=== PATIENT | male | born 1960 | race American Indian/Alaskan Native ===

== ENCOUNTER 2020-10-04 15:01 | Inpatient (IN) | payer OTHER ==
[~2020-10-04 15:01] MED LIST: BUPIVACAINE/PF (0.25%) 2.5 MG/ML 30 ML VIAL INFILTRATI ONE; LIDOCAINE (1%) 10 MG/1 ML VIAL 20 ML MDV INFILTRATI ONE; SODIUM CHLORIDE 0.9% IRR 1,500 ML BOTTLE IR ONE
--- NOTE | 2020-10-04 15:04 | Event Note ---
ED Screening Note ED Screening Note: allergy to shell fish pmh obese hernia occ etoh severe abd pain- has hernia vomiting hiccups bm 3 d ago no rx diaphoretic/tachycardia This initial assessment/diagnostic orders/clinical plan/treatment(s) is/are subject to change based on patients health status, clinical progression and re- assessment by fellow clinical providers in the ED. Further treatment and workup at subsequent clinical providers discretion. Patient/guardian urged not to elope from the ED as their condition may be serious if not clinically assessed and managed. Initial orders include: ro inc hernia
[2020-10-04] MEDS ORDERED: ONDANSETRON 4 MG/2 ML INJ IV ONE ×2 (16:49→20:33)
[2020-10-04] MEDS ORDERED: MORPHINE 4 MG/1 ML INJ IV ONE ×3 (16:49→22:12)
[2020-10-04] MEDS ORDERED: SODIUM CHLORIDE 0.9% 1000 ML 1,000 ML IV ONE ×3 (16:49→22:32)
[2020-10-04 18:28] LABS: Basophils % (Auto) 0.3 % (0.0-1.8); Hematocrit 54.4 % (35.5-45.6); Hemoglobin 18.3 gm/dl (11.8-15.2); Lymphocytes # (Auto) 1.1 K/mm3 (1.2-5.4); Lymphocytes % (Auto) 11.5 % (13.4-35.0); Mean Corpuscular HGB Conc 34 % (32-34); Mean Corpuscular Volume 95 fl (84-94); Monocytes % (Auto) 11.3 % (0.0-7.3); Platelet Count 375 K/mm3 (140-440); Red Blood Count 5.71 M/mm3 (3.65-5.03)
[2020-10-04 18:37] LABS: INR 1.11 (0.87-1.13)
[2020-10-04 18:49] LABS: Albumin 4.7 g/dL (3.9-5); Bilirubin,Direct 0.5 mg/dL (0-0.2); Calcium 9.9 mg/dL (8.4-10.2)
--- NOTE | 2020-10-04 20:40 | Emergency Department Report ---
ED General Adult HPI - General Chief complaint: Abdominal Pain Stated complaint: ABD PAIN Time Seen by Provider: 10/04/20 15:02 Source: patient Mode of arrival: Ambulatory Limitations: No Limitations - History of Present Illness Initial comments: Patient presents to the emergency department the chief complaint of abdominal pain has been present for the last 3 days. Patient states that his hernia has been acting up over the last 3 days it has become worse each and every day. Patient states he is usually able to push the hernia back down but he has not been able to over the last 3 days. Patient also complains of having some vomiting since the abdominal pain began 3 days ago. Patient denies chest pain, shortness breath, headache. -: Sudden, days(s) (3) Location: abdomen Radiation: non-radiation Severity scale (0 -10): 6 Quality: sharp Consistency: constant Improves with: none Worsens with: none Associated Symptoms: denies other symptoms Treatments Prior to Arrival: none - Related Data Allergies Allergy/AdvReac Type Severity Reaction Status Date / Time shellfish derived Allergy Anaphylaxis Verified 10/04/20 15:04 ED Review of Systems ROS: Stated complaint: ABD PAIN Other details as noted in HPI Constitutional: denies: chills, fever Eyes: denies: eye pain, eye discharge, vision change ENT: denies: ear pain, throat pain Respiratory: denies: cough, shortness of breath, wheezing Cardiovascular: denies: chest pain, palpitations Endocrine: no symptoms reported Gastrointestinal: abdominal pain. denies: nausea, diarrhea Genitourinary: denies: urgency, dysuria Musculoskeletal: denies: back pain, joint swelling, arthralgia Skin: denies: rash, lesions Neurological: denies: headache, weakness, paresthesias Psychiatric: denies: anxiety, depression Hematological/Lymphatic: denies: easy bleeding, easy bruising ED Past Medical Hx - Past Medical History Previous Medical History?: No - Surgical History Past Surgical History?: Yes Hx Appendectomy: Yes ED Physical Exam - General Limitations: No Limitations General appearance: alert, in no apparent distress - Head Head exam: Present: atraumatic, normocephalic - Eye Eye exam: Present: normal appearance, PERRL, EOMI - ENT ENT exam: Present: mucous membranes moist - Neck Neck exam: Present: normal inspection - Respiratory Respiratory exam: Present: normal lung sounds bilaterally. Absent: respiratory distress - Cardiovascular Cardiovascular Exam: Present: regular rate, normal rhythm. Absent: systolic murmur, diastolic murmur, rubs, gallop - GI/Abdominal GI/Abdominal exam: Present: soft, tenderness (The periumbilical hernia is tender to palpation and not reducible on exam.), normal bowel sounds. Absent: distended - Rectal Rectal exam: Present: deferred - Extremities Exam Extremities exam: Present: normal inspection - Back Exam Back exam: Present: normal inspection - Neurological Exam Neurological exam: Present: alert, oriented X3 - Psychiatric Psychiatric exam: Present: normal affect, normal mood - Skin Skin exam: Present: warm, dry, intact, normal color. Absent: rash ED Course Vital Signs 10/04/20 10/04/20 18:44 20:36 Pulse Rate 130 H 110 H Respiratory 20 17 Rate Blood Pressure 137/89 [Right] O2 Sat by Pulse 94 99 Oximetry ED Medical Decision Making - Lab Data Result diagrams: 10/04/20 16:39 10/04/20 16:39 Lab Results 10/04/20 10/04/20 10/04/20 Range/Units 16:39 16:39 16:39 WBC 9.2 (4.5-11.0) K/mm3 RBC 5.71 H (3.65-5.03) M/mm3 Hgb 18.3 H (11.8-15.2) gm/dl Hct 54.4 H (35.5-45.6) % MCV 95 H (84-94) fl MCH 32 (28-32) pg MCHC 34 (32-34) % RDW 14.0 (13.2-15.2) % Plt Count 375 (140-440) K/mm3 Lymph % (Auto) 11.5 L (13.4-35.0) % [place] % (Auto) 11.3 H (0.0-7.3) % Eos % (Auto) 0.0 (0.0-4.3) % Baso % (Auto) 0.3 (0.0-1.8) % Lymph # (Auto) 1.1 L (1.2-5.4) K/mm3 [place] # (Auto) 1.0 H (0.0-0.8) K/mm3 Eos # (Auto) 0.0 (0.0-0.4) K/mm3 Baso # (Auto) 0.0 (0.0-0.1) K/mm3 Seg Neutrophils % 76.9 H (40.0-70.0) % Seg Neutrophils # 7.1 (1.8-7.7) K/mm3 PT 14.2 (12.2-14.9) Sec. INR 1.11 (0.87-1.13) Sodium 132 L (137-145) mmol/L Potassium 5.2 H (3.6-5.0) mmol/L Chloride 91.7 L (98-107) mmol/L Carbon Dioxide 22 (22-30) mmol/L Anion Gap 24 mmol/L BUN 46 H (9-20) mg/dL Creatinine 1.6 H (0.8-1.3) mg/dL Estimated GFR 53 ml/min BUN/Creatinine Ratio 29 % Glucose 258 H (75-100) mg/dL Lactic Acid (0.7-2.0) mmol/L Calcium 9.9 (8.4-10.2) mg/dL Total Bilirubin 1.70 H (0.1-1.2) mg/dL Direct Bilirubin 0.5 H (0-0.2) mg/dL Indirect Bilirubin 1.2 mg/dL AST 20 (5-40) units/L ALT 22 (7-56) units/L Alkaline Phosphatase 59 (35-129) units/L Total Creatine Kinase (55-170) units/L Troponin T (0.00-0.029) ng/mL Total Protein 8.6 H (6.3-8.2) g/dL Albumin 4.7 (3.9-5) g/dL Albumin/Globulin Ratio 1.2 % Lipase 20 (13-60) units/L 10/04/20 10/04/20 Range/Units 16:39 16:39 WBC (4.5-11.0) K/mm3 RBC (3.65-5.03) M/mm3 Hgb (11.8-15.2) gm/dl Hct (35.5-45.6) % MCV (84-94) fl MCH (28-32) pg MCHC (32-34) % RDW (13.2-15.2) % Plt Count (140-440) K/mm3 Lymph % (Auto) (13.4-35.0) % [place] % (Auto) (0.0-7.3) % Eos % (Auto) (0.0-4.3) % Baso % (Auto) (0.0-1.8) % Lymph # (Auto) (1.2-5.4) K/mm3 [place] # (Auto) (0.0-0.8) K/mm3 Eos # (Auto) (0.0-0.4) K/mm3 Baso # (Auto) (0.0-0.1) K/mm3 Seg Neutrophils % (40.0-70.0) % Seg Neutrophils # (1.8-7.7) K/mm3 PT (12.2-14.9) Sec. INR (0.87-1.13) Sodium (137-145) mmol/L Potassium (3.6-5.0) mmol/L Chloride (98-107) mmol/L Carbon Dioxide (22-30) mmol/L Anion Gap mmol/L BUN (9-20) mg/dL Creatinine (0.8-1.3) mg/dL Estimated GFR ml/min BUN/Creatinine Ratio % Glucose (75-100) mg/dL Lactic Acid 1.90 (0.7-2.0) mmol/L Calcium (8.4-10.2) mg/dL Total Bilirubin (0.1-1.2) mg/dL Direct Bilirubin (0-0.2) mg/dL Indirect Bilirubin mg/dL AST (5-40) units/L ALT (7-56) units/L Alkaline Phosphatase (35-129) units/L Total Creatine Kinase 273 H (55-170) units/L Troponin T 0.011 (0.00-0.029) ng/mL Total Protein (6.3-8.2) g/dL Albumin (3.9-5) g/dL Albumin/Globulin Ratio % Lipase (13-60) units/L - Radiology Data Radiology results: report reviewed - Medical Decision Making Spoke with Dr. Che and patient will be evaluated by her with possible or intervention Discussed results with patient Critical care attestation.: If time is entered above; I have spent that time in minutes in the direct care of this critically ill patient, excluding procedure time. ED Disposition Clinical Impression: Incarcerated umbilical hernia Disposition: OP ADMIT IP TO THIS HOSP Is pt being admited?: Yes Does the pt Need Aspirin: No Condition: Fair Referrals: PRIMARY CARE, [Primary Care Provider] - 3-5 Days
--- NOTE | 2020-10-04 21:31 | Cat Scan Report ---
CT ABDOMEN AND PELVIS WITH CONTRAST INDICATION / CLINICAL INFORMATION: incarcerated hernia. TECHNIQUE: Axial CT images were obtained through the abdomen and pelvis after 100 cc Omni [address] scans at this location are performed using CT dose reduction for ALARA by means of automated expos ure control. COMPARISON: None available. FINDINGS: LOWER CHEST: Partially visualized 5 mm nodule which is in close proximity to the left major fissure i n the left lower lobe. HEPATOBILIARY: Mild diffuse hypoattenuation of the liver without focal lesion. No significant biliary abnormality. PANCREAS/SPLEEN/ADRENALS: No significant abnormality. GENITOURINARY: Subcentimeter left renal hypodensity at the superior pole possibly representing a cyst . No obstructive uropathy or solid renal mass. Ureters and bladder demonstrate no significant abnorma lity. GASTROINTESTINAL/MESENTERY: Multiple dilated loops of small bowel with air-fluid levels and a medium sized anterior fat and bowel containing abdominal wall hernia at the midabdomen level of the pelvic b rim. The bowel within the hernia is decompressed. The afferent bowel appears dilated and the efferent bowel is also decompressed. No free air or significant free fluid. No mesenteric or portal venous ga s. No pneumatosis intestinalis. RETROPERITONEUM: No significant adenopathy. REPRODUCTIVE ORGANS: No significant abnormality. VASCULAR: No significant abnormality. BODY WALL: Medium sized anterior abdominal wall hernia containing decompressed bowel, as described ab ove. SKELETAL SYSTEM: Mild anterior compression deformity of L2, age indeterminate. No aggressive osseous lesion is apparent. IMPRESSION: 1. Medium sized anterior abdominal wall hernia containing decompressed bowel with high-grade appearin g obstruction of the bowel proximal to the hernia. No evidence of perforation or mesenteric ischemia at this time. Recommend surgical consultation and further evaluation/follow-up as warranted. 2. 5 mm left lower lobe nodule. In patients with low risk for pulmonary neoplasm no routine follow-up is recommended. In patients with high risk for pulmonary neoplasm consider dedicated CT chest in 12 months. 3. Subcentimeter left renal hypodensity, possible cyst. 4. Findings suggestive of hepatic steatosis. 5. Mild anterior compression deformity of L2, age indeterminate. Recommend clinical correlation and c omparison with prior imaging if available. Signer Name: Brayan Rosen MD Signed: 10/04/2020 9:26 PM Workstation Name: [id number]
[2020-10-04 22:43] LABS: Bacteria,Urine 1+ /HPF (Negative); Bilirubin,Urine NEG (Negative); Blood,Urine NEG (Negative); Color,Urine Amber (Yellow); Mucus,Urine FEW /HPF
[2020-10-04] MEDS ORDERED: SODIUM CHLORIDE 0.9% 1000 ML 1,000 ML IV SCH ×2 (22:45→23:00)
[2020-10-04] MEDS ORDERED: ACETAMINOPHEN 325 MG TAB PO PRN (22:48)
[2020-10-04] MEDS ORDERED: ONDANSETRON 4 MG/2 ML INJ IV PRN (22:48)
--- NOTE | 2020-10-04 22:56 | History and Physical Report ---
History of Present Illness Date of examination: 10/04/20 Date of admission: 10/04/2020 Chief complaint: Abdominal Pain History of present illness: 60-year-old -Filipino male presenting to the emergency room today complaining of abdominal pain which has been ongoing for the past 3 days. Patient has had an umbilical hernia over several years but has not had any major problems with it. However over the past 3 to 4 days he has been having pain in his umbilical region. He has been having nausea and vomiting and has been constipated over the past 4 days. He denies any coffee-ground emesis, no diarrhea, no chest pain or shortness of breath, no fever or chills, no headache or dizziness. Denies any dysuria or hematuria. Work-up in the emergency room today including CT scan of the abdomen and pelvis reveals incarcerated umbilical hernia. Labs were significant for acute kidney injury. Dr. Chinedu carson general surgeon was consulted by the ER physician. Patient will be promptly evaluated. Past History Past Medical History: other (Kyleena) Past Surgical History: appendectomy Social history: alcohol abuse (Occasional alcohol) Family history: diabetes ( diabetes in mother), hypertension (Hypertension in mother), other (Mother of multiple myeloma about 3 years ago) Medications and Allergies Allergies Allergy/AdvReac Type Severity Reaction Status Date / Time shellfish derived Allergy Anaphylaxis Verified 10/04/20 15:04 Active Meds: Active Medications Acetaminophen (Acetaminophen 325 Mg Tab) 650 mg PO Q4H PRN PRN Reason: Pain MILD(1-3)/Fever >100.5/ACOSTA Cefazolin Sodium (Cefazolin/Sterile Water 2 Gm/20 Ml Syringe) 2 gm IV PREOP NR Sodium Chloride (Nacl 0.9% 1000 Ml) 1,000 mls @ 999 mls/hr IV BOLUS ONE Stop: 10/04/20 23:22 Sodium Chloride (Nacl 0.9% 1000 Ml) 1,000 mls @ 999 mls/hr IV BOLUS ONE Stop: 10/04/20 23:32 Last Admin: 10/04/20 22:33 Dose: 999 mls/hr Documented by: Sodium Chloride (Nacl 0.9% 1000 Ml) 1,000 mls @ 150 mls/hr IV DIRECT LEIGH ANN Sodium Chloride (Nacl 0.9% 1000 Ml) 1,000 mls @ 125 mls/hr IV DIRECT LEIGH ANN Morphine Sulfate (Morphine 2 Mg/1 Ml Inj) 2 mg IV Q4H PRN PRN Reason: Pain, Moderate (4-6) Ondansetron HCl (Ondansetron 4 Mg/2 Ml Inj) 4 mg IV Q8H PRN PRN Reason: Nausea And Vomiting Sodium Chloride (Sodium Chloride 0.9% 10 Ml Flush Syringe) 10 ml IV BID LEIGH ANN Sodium Chloride (Sodium Chloride 0.9% 10 Ml Flush Syringe) 10 ml IV PRN PRN PRN Reason: LINE FLUSH Review of Systems Constitutional: no fever, no chills Ears, nose, mouth and throat: no nasal congestion, no sore throat Cardiovascular: no chest pain, no palpitations Respiratory: no cough, no shortness of breath Gastrointestinal: abdominal pain, nausea, vomiting, constipation, no diarrhea, no coffee ground emesis Genitourinary Male: no dysuria, no hematuria, no flank pain Musculoskeletal: no neck pain, no low back pain Integumentary: no rash, no pruritis Neurological: no headaches, no confusion Psychiatric: no anxiety, no depression Exam - Constitutional Vitals: Temp Pulse Resp BP Pulse Ox 110 H 17 137/89 99 10/04/20 20:36 10/04/20 20:36 10/04/20 18:44 10/04/20 20:36 General appearance: Present: no acute distress, well-nourished, obese - EENT Eyes: Present: PERRL, EOM intact. Absent: scleral icterus ENT: hearing intact, clear oral mucosa, dentition normal - Neck Neck: Present: supple, normal ROM - Respiratory Respiratory effort: normal Respiratory: bilateral: CTA - Cardiovascular Rhythm: regular Heart Sounds: Present: S1 & S2. Absent: gallop, systolic murmur, diastolic murmur, rub - Extremities Extremities: no ischemia, pulses intact, pulses symmetrical, No edema, normal temperature, normal color, Full ROM Peripheral Pulses: within normal limits - Abdominal General gastrointestinal: Present: soft, tender, distended, normal bowel sounds, hernia (Firm, slightly protruding umbilical hernia) - Integumentary Integumentary: Present: clear, warm, dry. Absent: rash - Musculoskeletal Musculoskeletal: strength equal bilaterally - Psychiatric Psychiatric: appropriate mood/affect, intact judgment & insight, memory intact, cooperative - Neurologic Neurologic: CNII-XII intact, no focal deficits, moves all extremities HEART Score - HEART Score Troponin: Troponin T 0.011 ng/mL (0.00-0.029) 10/04/20 16:39 Results - Labs CBC & Chem 7: 10/05/20 05:50 10/05/20 05:50 Labs: Abnormal lab results 10/04/20 10/04/20 10/04/20 Range/Units 16:39 16:39 16:39 RBC 5.71 H (3.65-5.03) M/mm3 Hgb 18.3 H (11.8-15.2) gm/dl Hct 54.4 H (35.5-45.6) % MCV 95 H (84-94) fl Lymph % (Auto) 11.5 L (13.4-35.0) % [place] % (Auto) 11.3 H (0.0-7.3) % Lymph # (Auto) 1.1 L (1.2-5.4) K/mm3 [place] # (Auto) 1.0 H (0.0-0.8) K/mm3 Seg Neutrophils % 76.9 H (40.0-70.0) % Sodium 132 L (137-145) mmol/L Potassium 5.2 H (3.6-5.0) mmol/L Chloride 91.7 L (98-107) mmol/L BUN 46 H (9-20) mg/dL Creatinine 1.6 H (0.8-1.3) mg/dL Glucose 258 H (75-100) mg/dL Total Bilirubin 1.70 H (0.1-1.2) mg/dL Direct Bilirubin 0.5 H (0-0.2) mg/dL Total Creatine Kinase 273 H (55-170) units/L Total Protein 8.6 H (6.3-8.2) g/dL Assessment and Plan - Patient Problems (1) Incarcerated umbilical hernia Current Visit: Yes Status: Acute Plan to address problem: Patient admitted to the medical floor. General surgeon Dr. Che has been consulted for evaluation. We will place patient on IV analgesic medication as needed meanwhile. (2) ELLA (acute kidney injury) Current Visit: Yes Status: Acute Plan to address problem: Possibly prerenal. Patient placed on IV fluid normal saline. We will monitor BUN and creatinine. (3) DVT prophylaxis Current Visit: Yes Status: Acute Plan to address problem: Patient placed on sequential compression device. (4) Full code status Current Visit: Yes Status: Acute Plan to address problem: Patient is a full code.
--- NOTE | 2020-10-04 23:42 | Consultation ---
History of Present Illness Consult date: 10/04/20 Reason for consult: abdominal pain Chief complaint: abdominal pain - History of present illness History of present illness: 60 yo M with hx of HTN who presented to ER with 3 days of worsening periumbilica l abdominal pain and swelling. Patient has a known umbilical hernia for at least the last 5 years and states he has always been able to push it back in. He has not been able to do so this time. He has had nausea, vomiting, and hiccups. He has not been able to have a BM or pass flatus for 3 days. He does not have a PCP. No f/c, cp, sob. Past History Past Medical History: hypertension Past Surgical History: appendectomy (open) Social history: alcohol abuse (Occasional alcohol). denies: smoking Family history: diabetes ( diabetes in mother), hypertension (Hypertension in mother), other (Mother of multiple myeloma about 3 years ago) Medications and Allergies Allergies Allergy/AdvReac Type Severity Reaction Status Date / Time shellfish derived Allergy Anaphylaxis Verified 10/04/20 15:04 Active Meds: Active Medications Acetaminophen (Acetaminophen 325 Mg Tab) 650 mg PO Q4H PRN PRN Reason: Pain MILD(1-3)/Fever >100.5/ACOSTA Cefazolin Sodium (Cefazolin/Sterile Water 2 Gm/20 Ml Syringe) 2 gm IV PREOP NR Stop: 10/05/20 00:01 Sodium Chloride (Nacl 0.9% 1000 Ml) 1,000 mls @ 125 mls/hr IV DIRECT LEIGH ANN Morphine Sulfate (Morphine 2 Mg/1 Ml Inj) 2 mg IV Q4H PRN PRN Reason: Pain, Moderate (4-6) Ondansetron HCl (Ondansetron 4 Mg/2 Ml Inj) 4 mg IV Q8H PRN PRN Reason: Nausea And Vomiting Sodium Chloride (Sodium Chloride 0.9% 10 Ml Flush Syringe) 10 ml IV BID LEIGH ANN Sodium Chloride (Sodium Chloride 0.9% 10 Ml Flush Syringe) 10 ml IV PRN PRN PRN Reason: LINE FLUSH Review of Systems All systems: negative (10 pt ROS performed and negative except for that listed in HPI) Exam Vital Signs Pulse Resp BP Pulse Ox 130 H 20 137/89 94 10/04/20 18:44 10/04/20 18:44 10/04/20 18:44 10/04/20 18:44 Narrative exam: Gen; AAOx3. NAD ENT: no scleral icterus or conjunctival pallor CV: s1, S2+ Resp: even and unlabored Abd: soft, obese, moderately distended, tender at umbilicus. There is supraumbilical erythema with hernia which is not reducible but soft. Well healed right lower quadrant scar Ext; no c/c/e Results - Labs 10/04/20 16:39 10/04/20 16:39 Abnormal lab results 10/04/20 10/04/20 10/04/20 Range/Units 16:39 16:39 16:39 RBC 5.71 H (3.65-5.03) M/mm3 Hgb 18.3 H (11.8-15.2) gm/dl Hct 54.4 H (35.5-45.6) % MCV 95 H (84-94) fl Lymph % (Auto) 11.5 L (13.4-35.0) % [place] % (Auto) 11.3 H (0.0-7.3) % Lymph # (Auto) 1.1 L (1.2-5.4) K/mm3 [place] # (Auto) 1.0 H (0.0-0.8) K/mm3 Seg Neutrophils % 76.9 H (40.0-70.0) % Sodium 132 L (137-145) mmol/L Potassium 5.2 H (3.6-5.0) mmol/L Chloride 91.7 L (98-107) mmol/L BUN 46 H (9-20) mg/dL Creatinine 1.6 H (0.8-1.3) mg/dL Glucose 258 H (75-100) mg/dL Total Bilirubin 1.70 H (0.1-1.2) mg/dL Direct Bilirubin 0.5 H (0-0.2) mg/dL Total Creatine Kinase 273 H (55-170) units/L Total Protein 8.6 H (6.3-8.2) g/dL Diabetes panel 10/04/20 Range/Units 16:39 Sodium 132 L (137-145) mmol/L Potassium 5.2 H (3.6-5.0) mmol/L Chloride 91.7 L (98-107) mmol/L Carbon Dioxide 22 (22-30) mmol/L BUN 46 H (9-20) mg/dL Creatinine 1.6 H (0.8-1.3) mg/dL Glucose 258 H (75-100) mg/dL Calcium 9.9 (8.4-10.2) mg/dL AST 20 (5-40) units/L ALT 22 (7-56) units/L Alkaline Phosphatase 59 (35-129) units/L Total Protein 8.6 H (6.3-8.2) g/dL Albumin 4.7 (3.9-5) g/dL Calcium panel 10/04/20 Range/Units 16:39 Calcium 9.9 (8.4-10.2) mg/dL Albumin 4.7 (3.9-5) g/dL Pituitary panel 10/04/20 Range/Units 16:39 Sodium 132 L (137-145) mmol/L Potassium 5.2 H (3.6-5.0) mmol/L Chloride 91.7 L (98-107) mmol/L Carbon Dioxide 22 (22-30) mmol/L BUN 46 H (9-20) mg/dL Creatinine 1.6 H (0.8-1.3) mg/dL Glucose 258 H (75-100) mg/dL Calcium 9.9 (8.4-10.2) mg/dL Adrenal panel 10/04/20 Range/Units 16:39 Sodium 132 L (137-145) mmol/L Potassium 5.2 H (3.6-5.0) mmol/L Chloride 91.7 L (98-107) mmol/L Carbon Dioxide 22 (22-30) mmol/L BUN 46 H (9-20) mg/dL Creatinine 1.6 H (0.8-1.3) mg/dL Glucose 258 H (75-100) mg/dL Calcium 9.9 (8.4-10.2) mg/dL Total Bilirubin 1.70 H (0.1-1.2) mg/dL AST 20 (5-40) units/L ALT 22 (7-56) units/L Alkaline Phosphatase 59 (35-129) units/L Total Protein 8.6 H (6.3-8.2) g/dL Albumin 4.7 (3.9-5) g/dL - Imaging CT scan - abdomen: report reviewed, image reviewed CT scan - pelvis: report reviewed, image reviewed Assessment and Plan 60 yo M with 1. incarcerated umbilical hernia 2. SBO 2/2 #1 3. ELLA Plan: 1. Admit to hospitalist service 2. strict NPO 3. Insert NGT, connect to LIWS 4. IVF 5. DVT ppx 6. prn pain and nausea control 7. Recommend emergent umbilical hernia repair, possible small bowel resection, possible mesh. Incarcerated hernia with skin changes concerning for developing ischemia of involved small bowel. Discussed this with patient. All risks, benefits, alternatives to surgery discussed. Questions answered and consent obtained. 8. Pt to inform son of plan D/W Dr. Thakur Thank you, please call with questions. Evaluation and treatment of this patient was during the time of the national and state emergency arising from COVID19 coronavirus pandemic. Treatment and procedures performed meet the current and available best practice and guidelines for patient during the COVID pandemic.
--- NOTE | 2020-10-04 23:50 | Anesthesia Day of Surgery ---
Anesthesia Day of Surgery - Day of Surgery Patient Examined: Yes Patient H&P Reviewed: Yes Patient is NPO: Yes
--- NOTE | 2020-10-04 23:50 | Anesthesia Consultation ---
Anesthesia Consult and Med Hx Date of service: 10/04/20 - Airway Anesthetic Teeth Evaluation: Good ROM Head & Neck: Adequate Mental/Hyoid Distance: Adequate Mallampati Class: Class II Intubation Access Assessment: Good - Pulmonary Exam CTA: Yes - Cardiac Exam Cardiac Exam: RRR - Pre-Operative Health Status ASA Pre-Surgery Classification: ASA2 Proposed Anesthetic Plan: General - Cardiovascular System Hx Hypertension: Yes
[2020-10-04] MEDS ORDERED: fentaNYL 100 MCG/2 ML INJ ONE (23:58)
[2020-10-04] MEDS ORDERED: propofoL 200 MG/20 ML VIAL IV ONE (23:59)
[2020-10-05] MEDS ORDERED: ceFAZolin/STERILE WATER 2 GM/20 ML SYRINGE IV NR
[2020-10-05] MEDS ORDERED: LIDOCAINE (1%) 10 MG/1 ML VIAL 20 ML MDV ONE (00:14)
[2020-10-05] MEDS ORDERED: BUPIVACAINE/PF (0.25%) 2.5 MG/ML 30 ML VIAL INFILTRATI ONE (00:15)
[2020-10-05] MEDS ORDERED: HYDROmorphone 1 MG/1 ML INJ ONE (01:34)
[2020-10-05] MEDS ORDERED: ONDANSETRON 4 MG/2 ML INJ ONE (01:34)
[2020-10-05] MEDS ORDERED: dexAMETHasone 20 MG/5 ML VIAL ONE (01:34)
[2020-10-05] MEDS ORDERED: KETOROLAC 30 MG/1 ML INJ ONE (01:34)
[2020-10-05] MEDS ORDERED: NEOSTIGMINE 10MG/10 ML INJ MDV ONE (01:46)
[2020-10-05] MEDS ORDERED: GLYCOPYRROLATE 0.4 MG/2 ML INJ ONE (01:46)
[2020-10-05] MEDS ORDERED: LACTATED RINGERS 2,000 ML ONE (01:47)
[2020-10-05] MEDS ORDERED: ROCURONIUM 50 MG/5 ML INJ IV ONE (02:00)
--- NOTE | 2020-10-05 02:13 | Post Operative Note ---
Date of procedure: 10/05/20 Pre-op diagnosis: incarcerated umbilical hernia with small bowel obstruction Post-op diagnosis: same Findings: Large amount of incarcerated omentum and a loop of small bowel in 3 cm hernia defect Viable small bowel with closed loop obstruction Dusky omentum Repaired with ventrio ST [id number] composite mesh Procedure: Open reduction of incarcerated umbilical hernia, partial omentectomy, repair of hernia with mesh Anesthesia: EMA, local Surgeon: [place] LYNN Estimated blood loss: minimal Pathology: list (omentum, hernia sac) Specimen disposition: to lab Condition: stable Disposition: PACU
[2020-10-05] MEDS ORDERED: ONDANSETRON 4 MG/2 ML INJ IV PRN (02:25)
[2020-10-05] MEDS: HYDROmorphone 1 MG/1 ML INJ IV PRN ×5 (02:26→23:26)
--- NOTE | 2020-10-05 02:27 | Post Anesthesia Evaluation ---
- Post Anesthesia Evaluation Patient Participated: Yes Airway Patent: Yes Stable Respiratory Function: Yes Nausea/Vomiting: No Temp > 96.8F: Yes Pain Manageable: Yes Adequeate Hydration: Yes Anesthesia Complications: No Block Receding Appropriately: Not Applicable Patient on Ventilator: No
[2020-10-05] MEDS: HEPARIN 5,000 UNIT/1 ML VIAL SUB-Q SCH ×3 (06:13→22:35)
[2020-10-05 06:24] LABS: Basophils % (Auto) 0.1 % (0.0-1.8); Hematocrit 44.1 % (35.5-45.6); Lymphocytes # (Auto) 0.6 K/mm3 (1.2-5.4); Lymphocytes % (Auto) 8.3 % (13.4-35.0); Mean Corpuscular HGB Conc 34 % (32-34); Mean Corpuscular Volume 96 fl (84-94); Monocytes # (Auto) 0.5 K/mm3 (0.0-0.8); Monocytes % (Auto) 7.3 % (0.0-7.3); Platelet Count 253 K/mm3 (140-440); Red Blood Count 4.61 M/mm3 (3.65-5.03); Red Cell Distribution Width 14.3 % (13.2-15.2)
[2020-10-05] MEDS ORDERED: PHENOL 1.4% 177 ML BOTTLE MM PRN (08:30)
[2020-10-05] MEDS: metroNIDAZOLE/NS 500 MG/100 ML 500 MG/100 ML BAG IV SCH ×2 (09:00→22:47)
[2020-10-05] MEDS ORDERED: D5W/0.9% NACL 1,000 ML IV SCH (12:00)
--- NOTE | 2020-10-05 14:10 | XRay Report ---
ABDOMEN 1 VIEW 10/05/2020 12:54 PM INDICATION / CLINICAL INFORMATION: sbo. ABDOMEN 2 VIEWS COMPARISON: None available. FINDINGS: There is marked dilatation of small bowel loops throughout suggesting possible distal small bowel obs truction. Hemidiaphragms are not included. IMPRESSION: Marked dilatation of small bowel loops throughout suggesting distal small bowel obstruction. Signer Name: Hema Flor MD Signed: 10/05/2020 2:05 PM Workstation Name: [id number]
--- NOTE | 2020-10-05 14:34 | Progress Note ---
Assessment and Plan 60 yo M s/p Open reduction of incarcerated umbilical hernia, partial omentectomy, repair of hernia with mesh, POD 1 1. incarcerated umbilical hernia 2. SBO 2/2/ #1 3. 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 elevated HbA1C 5. obesity Pt stable. NGT output 50cc overnight. Abd xray shows persistent dilatation of small bowel Plan: 1. continue NPO, may have ice chips 2. IVF 3. repeat BMP in am 4. await bowel function 5. OOB/ambulate 6. prn pain control 7. DVT ppx 8. incentive spirometry/pulm toilet Plan discussed in detail with patient. Thank you, please call with questions. Subjective Date of service: 10/05/20 Narrative: Pt seen and examined. No acute complaints. No f/c. No n/v. No flatus or BM. Pain well managed. Objective Vital Signs - 12hr 10/05/20 10/05/20 10/05/20 02:45 02:55 03:06 Temperature 97.5 F L 97.5 F L Pulse Rate 89 94 H 84 Respiratory 12 12 20 Rate Blood Pressure 131/90 136/91 132/95 O2 Sat by Pulse 94 94 95 Oximetry 10/05/20 10/05/20 07:23 11:17 Temperature 98.4 F 97.4 F L Pulse Rate 92 H 95 H Respiratory 20 20 Rate Blood Pressure 125/79 130/82 O2 Sat by Pulse 95 94 Oximetry - General physical appearance Narrative Exam: Gen: AAOx3. NAD ENT: NGT in place with dark bilious output CV: S1, S2+ Resp: even and unlabored Abd: soft, obese, NT, ND. Incision c/d/i. Abdominal binder in place Ext: no c/c/e - Labs 10/05/20 05:50 10/05/20 05:50 Diabetes panel 10/04/20 10/05/20 10/05/20 Range/Units 16:39 05:50 05:50 Sodium 132 L 136 L (137-145) mmol/L Potassium 5.2 H 4.4 (3.6-5.0) mmol/L Chloride 91.7 L 97.9 L (98-107) mmol/L Carbon Dioxide 22 27 (22-30) mmol/L BUN 46 H 47 H (9-20) mg/dL Creatinine 1.6 H 1.5 H (0.8-1.3) mg/dL Glucose 258 H 233 H (75-100) mg/dL Hemoglobin A1c 7.2 H (4-6) % Calcium 9.9 8.0 L D (8.4-10.2) mg/dL AST 20 (5-40) units/L ALT 22 (7-56) units/L Alkaline Phosphatase 59 (35-129) units/L Total Protein 8.6 H (6.3-8.2) g/dL Albumin 4.7 (3.9-5) g/dL Calcium panel 10/04/20 10/05/20 Range/Units 16:39 05:50 Calcium 9.9 8.0 L D (8.4-10.2) mg/dL Albumin 4.7 (3.9-5) g/dL Pituitary panel 10/04/20 10/05/20 Range/Units 16:39 05:50 Sodium 132 L 136 L (137-145) mmol/L Potassium 5.2 H 4.4 (3.6-5.0) mmol/L Chloride 91.7 L 97.9 L (98-107) mmol/L Carbon Dioxide 22 27 (22-30) mmol/L BUN 46 H 47 H (9-20) mg/dL Creatinine 1.6 H 1.5 H (0.8-1.3) mg/dL Glucose 258 H 233 H (75-100) mg/dL Calcium 9.9 8.0 L D (8.4-10.2) mg/dL Adrenal panel 10/04/20 10/05/20 Range/Units 16:39 05:50 Sodium 132 L 136 L (137-145) mmol/L Potassium 5.2 H 4.4 (3.6-5.0) mmol/L Chloride 91.7 L 97.9 L (98-107) mmol/L Carbon Dioxide 22 27 (22-30) mmol/L BUN 46 H 47 H (9-20) mg/dL Creatinine 1.6 H 1.5 H (0.8-1.3) mg/dL Glucose 258 H 233 H (75-100) mg/dL Calcium 9.9 8.0 L D (8.4-10.2) mg/dL Total Bilirubin 1.70 H (0.1-1.2) mg/dL AST 20 (5-40) units/L ALT 22 (7-56) units/L Alkaline Phosphatase 59 (35-129) units/L Total Protein 8.6 H (6.3-8.2) g/dL Albumin 4.7 (3.9-5) g/dL
--- NOTE | 2020-10-05 14:51 | Operative Report ---
Operative Report Operative Report: Date of procedure: 10/05/20 Pre-op diagnosis: incarcerated umbilical hernia with small bowel obstruction Post-op diagnosis: same Findings: Large amount of incarcerated omentum and a loop of small bowel in 3 cm hernia defect Viable small bowel with closed loop obstruction Dusky omentum Repaired with ventrio ST [id number] composite mesh Procedure: Open reduction of incarcerated umbilical hernia, partial omentectomy, repair of hernia with mesh Anesthesia: EMA, local Surgeon: [place] LYNN Estimated blood loss: minimal Pathology: list (omentum, hernia sac) Specimen disposition: to lab Condition: stable Disposition: PACU HPI and indication: 60 yo with hx of HTN who presented to ER with 3 days of increasing periumbilical abdominal pain at site of known hernia. Patient found to have incarcerated umbilical hernia containing an obstructed loop of small bowel. It was recommended that patient undergo emergent surgery for reduction of umbilical hernia, repair of hernia and possible small bowel resection. All risk and benefits and alternatives to surgery were discussed with the patient questions answered. Consent was obtained. Procedure in detail: Patient was identified in the preoperative area, taken back to the operating room and placed on the operating room table in supine position. After anesthesia was induced the abdomen was prepped and draped in usual sterile fashion timeout performed. Local anesthetic was infiltrated to skin at at the intended incision site. A midline periumbilical incision was made using a 15 blade. Dissection was carried down through skin and subcutaneous tissue very carefully using electrocautery until the hernia was encountered. The hernia sac was from the subcutaneous tissue using combination of blunt dissection electrocautery. The hernia sac was then carefully opened using Metzenbaum scissors and from the hernia contents. There was a large amount of incarcerated omentum in the hernia as well as a loop of small intestine. The omentum appeared dusky and therefore was excised using electrocautery and passed off the table as a specimen. The loop of small bowel was examined and appeared viable. It could not be reduced through the existing fascial defect which measured approximately 3 cm and therefore the defect was elongated by approximately 1 cm in order to facilitate reduction of the small bowel. The proximal and distal small bowel was decompressed and the hernia was the point of bowel obstruction. The borders of the fascia were defined and the hernia sac dissected off the fascia and excised. This was passed off the table as a specimen. The subcutaneous tissue was then dissected off the fascia circumferentially using electrocautery. The fascial defect measured 4 cm x 2 cm. It was therefore decided to repair the hernia using a mesh, ventrio ST 14 x 11 cm composite mesh. This was sutured in circumferentially at 1 cm increments using 0 Vicryl suture. The mesh was ensured to lay flat without any gaps in between the sutures. There was adequate coverage of the defect. The fascia was then approximated over the mesh using #1 PDS running stitch. The subcutaneous tissue was then irrigated and hemostasis very carefully ensured. The deep space was closed using interrupted 3-0 Vicryl stitches. The deep dermal layer was closed using 3-0 Vicryl interrupted stitches. Local anesthetic was infiltrated into the skin and subcutaneous tissue. The skin was approximated with 4 Monocryl subcuticular running stitch and skin glue. At the end of the case, all sponge, instrument, sharp counts were correct x2. The patient was awoken from anesthesia extubated and taken to PACU in stable condition.
--- NOTE | 2020-10-05 15:05 | Progress Note ---
Assessment and Plan -- Incarcerated umbilical hernia with bowel obstruction Patient admitted to the medical floor. General surgeon Dr. Avila has been consulted for evaluation. patient on IV analgesic medication as needed s/p Open reduction of incarcerated umbilical hernia, partial omentectomy, repair of hernia with mesh Patient remains on NG suction, keep n.p.o. -- ELLA (acute kidney injury) Possibly prerenal with vasomotor nephropathy. Patient placed on IV fluid normal saline. We will monitor BUN and creatinine. --Morbid obesity, weight reduction diet and exercise when ready for discharge when clinically stable -- DVT prophylaxis Patient placed on sequential compression device. -- Full code status Patient is a full code. 10/05: s/p Open reduction of incarcerated umbilical hernia, partial omentectomy, repair of hernia with mesh, POD 1. Continue to keep patient n.p.o., continue IV fluid. General surgery recommended to ambulate the patient and wait for bowel function to return. Continue to provide supportive care. Subjective Date of service: 10/05/20 Interval history: Patient seen and examined Status post surgery POD 1 Patient remains n.p.o. with NG tube suction Discussed plan of care at the bedside with patient and with the RN Objective - Exam Narrative Exam: GENERAL: well-developed morbidly obese white male lying on bed appeared to be in no discomfort. HEENT: Normocephalic. Atraumatic. No conjunctival congestion or icterus. Patient has moist mucous membranes. NECK: Supple. Trachea midline. CHEST/LUNGS: breathing nonlabored. No wheezes crackles or rhonchi. HEART/CARDIOVASCULAR: Regular in rate and rhythm. S1 and S2 positive. ABDOMEN: Surgical dressing in place. Slightly tender SKIN: There is no rash. Warm and dry. NEURO: No focal motor deficit. Follows command. MUSCULOSKELETAL: No joint effusion or tenderness. EXTRIMITY: No edema, no cyanosis or clubbing. PSYCH: Cooperative. - Constitutional Vitals: Vital Signs - 12hr 10/05/20 10/05/20 10/05/20 03:06 07:23 11:17 Temperature 97.5 F L 98.4 F 97.4 F L Pulse Rate 84 92 H 95 H Respiratory 20 20 20 Rate Blood Pressure 132/95 125/79 130/82 O2 Sat by Pulse 95 95 94 Oximetry - Labs CBC & Chem 7: 10/07/20 04:19 10/09/20 03:17 Labs: Abnormal lab results 10/04/20 10/04/20 10/04/20 Range/Units 16:39 16:39 16:39 RBC 5.71 H (3.65-5.03) M/mm3 Hgb 18.3 H (11.8-15.2) gm/dl Hct 54.4 H (35.5-45.6) % MCV 95 H (84-94) fl MCH (28-32) pg Lymph % (Auto) 11.5 L (13.4-35.0) % [place] % (Auto) 11.3 H (0.0-7.3) % Lymph # (Auto) 1.1 L (1.2-5.4) K/mm3 [place] # (Auto) 1.0 H (0.0-0.8) K/mm3 Seg Neutrophils % 76.9 H (40.0-70.0) % Sodium 132 L (137-145) mmol/L Potassium 5.2 H (3.6-5.0) mmol/L Chloride 91.7 L (98-107) mmol/L BUN 46 H (9-20) mg/dL Creatinine 1.6 H (0.8-1.3) mg/dL Glucose 258 H (75-100) mg/dL Hemoglobin A1c (4-6) % Calcium (8.4-10.2) mg/dL Total Bilirubin 1.70 H (0.1-1.2) mg/dL Direct Bilirubin 0.5 H (0-0.2) mg/dL Total Creatine Kinase 273 H (55-170) units/L Total Protein 8.6 H (6.3-8.2) g/dL 10/05/20 10/05/20 10/05/20 Range/Units 05:50 05:50 05:50 RBC (3.65-5.03) M/mm3 Hgb (11.8-15.2) gm/dl Hct (35.5-45.6) % MCV 96 H (84-94) fl MCH 33 H (28-32) pg Lymph % (Auto) 8.3 L (13.4-35.0) % [place] % (Auto) (0.0-7.3) % Lymph # (Auto) 0.6 L (1.2-5.4) K/mm3 [place] # (Auto) (0.0-0.8) K/mm3 Seg Neutrophils % 84.3 H (40.0-70.0) % Sodium 136 L (137-145) mmol/L Potassium (3.6-5.0) mmol/L Chloride 97.9 L (98-107) mmol/L BUN 47 H (9-20) mg/dL Creatinine 1.5 H (0.8-1.3) mg/dL Glucose 233 H (75-100) mg/dL Hemoglobin A1c 7.2 H (4-6) % Calcium 8.0 L D (8.4-10.2) mg/dL Total Bilirubin (0.1-1.2) mg/dL Direct Bilirubin (0-0.2) mg/dL Total Creatine Kinase (55-170) units/L Total Protein (6.3-8.2) g/dL HEART Score - HEART Score Troponin: Troponin T 0.011 ng/mL (0.00-0.029) 10/04/20 16:39
--- NOTE | 2020-10-05 15:43 | Post Anesthesia Evaluation ---
- Post Anesthesia Evaluation Patient Participated: Yes Airway Patent: Yes Stable Respiratory Function: Yes Nausea/Vomiting: Yes (present prior to procedure. Tolerating ice chips. Otherwise NPO.) Temp > 96.8F: Yes Pain Manageable: Yes Adequeate Hydration: Yes Anesthesia Complications: No Other Comments: POD #1 s/p hernia repair. No anesthetic complications.
[2020-10-05] MEDS: MORPHINE 2 MG/1 ML INJ IV PRN (20:15)
[2020-10-05] MEDS: INSULIN REGULAR, HUMAN 100 UNITS/1 ML SUB-Q SCH ×2 (22:26→22:46)
[2020-10-05] MEDS: SODIUM CHLORIDE 0.9% 1000 ML 1,000 ML IV SCH (22:38)
[2020-10-06] MEDS: HYDROmorphone 1 MG/1 ML INJ IV PRN ×3 (03:39→12:34)
[2020-10-06] MEDS: MORPHINE 2 MG/1 ML INJ IV PRN (06:16)
[2020-10-06] MEDS: HEPARIN 5,000 UNIT/1 ML VIAL SUB-Q SCH ×3 (06:28→22:19)
[2020-10-06] MEDS: INSULIN REGULAR, HUMAN 100 UNITS/1 ML SUB-Q SCH ×4 (08:05→22:21)
[2020-10-06 11:07] LABS: BUN/Creatinine Ratio 23; Blood Urea Nitrogen 23 mg/dL (9-20); Calcium 8.2 mg/dL (8.4-10.2); Hemolysis Index 6
--- NOTE | 2020-10-06 13:58 | Progress Note ---
Assessment and Plan 60 yo M s/p Open reduction of incarcerated umbilical hernia, partial omentectomy, repair of hernia with mesh, POD 2 1. incarcerated umbilical hernia 2. 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 elevated HbA1C 5. obesity Pt stable. NGT output 500cc overnight, bilious. Plan: 1. continue NPO, may have ice chips only 2. IVF 3. repeat BMP in am 4. await bowel function 5. OOB/ambulate 6. prn pain control 7. DVT ppx 8. incentive spirometry/pulm toilet 9. Thorazine for hiccups Plan discussed in detail with patient who appears to understand. Explained that at this time NGT output is still bilious and high and so it cannot be removed. Hiccups likely from bowel distension. Will take time for bowel function to resume. Thank you, please call with questions. Subjective Date of service: 10/06/20 Narrative: Pt seen and examined. c/o hiccups and incisional pain. Pain is well controlled with dilaudid. No n/v. Had flatus. No f/c. Objective Vital Signs - 12hr 10/06/20 10/06/20 10/06/20 05:26 07:51 11:10 Temperature 99.2 F 98.1 F 98.1 F Pulse Rate 108 H 104 H 105 H Respiratory 18 20 18 Rate Blood Pressure 137/84 139/84 119/71 O2 Sat by Pulse 92 92 92 Oximetry - General physical appearance Narrative Exam: Gen: AAOx3. NAD ENT: NGT with bilious output CV: S1, S2+ Resp: even and unlabored Abd: soft, obese, NT. Incision c/d/i. Abd binder in place Ext: no c/c/e - Labs 10/05/20 05:50 10/06/20 10:39 Diabetes panel 10/06/20 Range/Units 10:39 Sodium 139 (137-145) mmol/L Potassium 3.9 (3.6-5.0) mmol/L Chloride 100.4 (98-107) mmol/L Carbon Dioxide 31 H (22-30) mmol/L BUN 23 H (9-20) mg/dL Creatinine 1.0 (0.8-1.3) mg/dL Glucose 193 H (75-100) mg/dL Calcium 8.2 L (8.4-10.2) mg/dL Calcium panel 10/06/20 Range/Units 10:39 Calcium 8.2 L (8.4-10.2) mg/dL Pituitary panel 10/06/20 Range/Units 10:39 Sodium 139 (137-145) mmol/L Potassium 3.9 (3.6-5.0) mmol/L Chloride 100.4 (98-107) mmol/L Carbon Dioxide 31 H (22-30) mmol/L BUN 23 H (9-20) mg/dL Creatinine 1.0 (0.8-1.3) mg/dL Glucose 193 H (75-100) mg/dL Calcium 8.2 L (8.4-10.2) mg/dL Adrenal panel 10/06/20 Range/Units 10:39 Sodium 139 (137-145) mmol/L Potassium 3.9 (3.6-5.0) mmol/L Chloride 100.4 (98-107) mmol/L Carbon Dioxide 31 H (22-30) mmol/L BUN 23 H (9-20) mg/dL Creatinine 1.0 (0.8-1.3) mg/dL Glucose 193 H (75-100) mg/dL Calcium 8.2 L (8.4-10.2) mg/dL
[2020-10-06] MEDS ORDERED: chlorproMAZINE 25 MG in SODIUM CHLORIDE 0.9% 50 ML IV PRN (14:00)
[2020-10-06] MEDS: SODIUM CHLORIDE 0.9% 1000 ML 1,000 ML IV SCH (14:14)
[2020-10-06] MEDS: KETOROLAC 30 MG/1 ML INJ IV SCH ×2 (14:15→22:12)
--- NOTE | 2020-10-06 15:18 | Progress Note ---
Assessment and Plan -- Incarcerated umbilical hernia with bowel obstruction Patient admitted to the medical floor. General surgeon Dr. Avila has been consulted for evaluation. patient on IV analgesic medication as needed s/p Open reduction of incarcerated umbilical hernia, partial omentectomy, repair of hernia with mesh Patient remains on NG suction, keep n.p.o. -- ELLA (acute kidney injury) Possibly prerenal with vasomotor nephropathy. Patient placed on IV fluid normal saline. We will monitor BUN and creatinine. --Morbid obesity, weight reduction diet and exercise when ready for discharge when clinically stable -- DVT prophylaxis Patient placed on sequential compression device. -- Full code status Patient is a full code. 10/05: s/p Open reduction of incarcerated umbilical hernia, partial omentectomy, repair of hernia with mesh, POD 1. Continue to keep patient n.p.o., continue IV fluid. General surgery recommended to ambulate the patient and wait for bowel function to return. Continue to provide supportive care. 10/06: NGT output is still bilious and high -continue NG suction and keep n.p.o.. Continue IV fluid and monitor BMP Subjective Date of service: 10/06/20 Interval history: Patient seen and examined Status post surgery POD 1 Patient remains n.p.o. with NG tube suction Discussed plan of care at the bedside with patient and with the RN Objective - Exam Narrative Exam: GENERAL: well-developed morbidly obese white male lying on bed appeared to be in no discomfort. HEENT: Normocephalic. Atraumatic. No conjunctival congestion or icterus. Patient has moist mucous membranes. NECK: Supple. Trachea midline. CHEST/LUNGS: breathing nonlabored. No wheezes crackles or rhonchi. HEART/CARDIOVASCULAR: Regular in rate and rhythm. S1 and S2 positive. ABDOMEN: Surgical dressing in place. Slightly tender SKIN: There is no rash. Warm and dry. NEURO: No focal motor deficit. Follows command. MUSCULOSKELETAL: No joint effusion or tenderness. EXTRIMITY: No edema, no cyanosis or clubbing. PSYCH: Cooperative. - Constitutional Vitals: Vital Signs - 12hr 10/06/20 10/06/20 10/06/20 05:26 07:51 11:10 Temperature 99.2 F 98.1 F 98.1 F Pulse Rate 108 H 104 H 105 H Respiratory 18 20 18 Rate Blood Pressure 137/84 139/84 119/71 O2 Sat by Pulse 92 92 92 Oximetry - Labs CBC & Chem 7: 10/07/20 04:19 10/09/20 03:17 Labs: Abnormal lab results 10/05/20 10/06/20 10/06/20 Range/Units 22:05 07:52 10:39 Carbon Dioxide 31 H (22-30) mmol/L BUN 23 H (9-20) mg/dL Glucose 193 H (75-100) mg/dL POC Glucose 192 H 187 H (70-105) mg/dL Calcium 8.2 L (8.4-10.2) mg/dL 10/06/20 Range/Units 11:09 Carbon Dioxide (22-30) mmol/L BUN (9-20) mg/dL Glucose (75-100) mg/dL POC Glucose 174 H (70-105) mg/dL Calcium (8.4-10.2) mg/dL HEART Score - HEART Score Troponin: Troponin T 0.011 ng/mL (0.00-0.029) 10/04/20 16:39
[2020-10-06] MEDS ORDERED: PROCHLORPERAZINE EDISYLATE 10 MG/2 ML VIAL IV PRN (16:02)
[2020-10-07] MEDS: HYDROmorphone 1 MG/1 ML INJ IV PRN ×2 (02:22→21:38)
[2020-10-07] MEDS: SODIUM CHLORIDE 0.9% 1000 ML 1,000 ML IV SCH ×2 (03:05→23:10)
[2020-10-07 05:02] LABS: Hematocrit 42.5 % (35.5-45.6); Hemoglobin 14.2 gm/dl (11.8-15.2); Mean Corpuscular HGB Conc 34 % (32-34); Mean Corpuscular Volume 97 fl (84-94); Platelet Count 230 K/mm3 (140-440); Red Blood Count 4.38 M/mm3 (3.65-5.03); Red Cell Distribution Width 13.9 % (13.2-15.2)
[2020-10-07 05:35] LABS: BUN/Creatinine Ratio 26; Blood Urea Nitrogen 23 mg/dL (9-20); Calcium 8.1 mg/dL (8.4-10.2); Hemolysis Index 11
[2020-10-07] MEDS: HEPARIN 5,000 UNIT/1 ML VIAL SUB-Q SCH ×3 (06:58→21:40)
[2020-10-07] MEDS: KETOROLAC 30 MG/1 ML INJ IV SCH ×3 (06:59→18:33)
[2020-10-07] MEDS: INSULIN REGULAR, HUMAN 100 UNITS/1 ML SUB-Q SCH ×4 (09:24→21:38)
--- NOTE | 2020-10-07 12:56 | XRay Report ---
ABDOMEN SUPINE INDICATION / CLINICAL INFORMATION: post op ileus. COMPARISON: 10/05/2020 FINDINGS: Moderate small bowel distention persists unchanged. A small amount of gas is again demonstrated in th e collapsed colon, also unchanged. Findings suggest persistent, significant but incomplete distal small bowel obstruction. Signer Name: Roland De La Torre MD Signed: 10/07/2020 12:51 PM Workstation Name: [id number]
--- NOTE | 2020-10-07 13:32 | Progress Note ---
Assessment and Plan POD#3 s/p reduction and repair of incarcerated umbilical hernia. Afebrile and stable with resolution of LELA likely due to dehydration. Post op ileus stable. continue NGT to suction. Have discussed with patient he can have ice chips but they must be very sparingly. He expressed understanding. Will await return of bowel function. Limit narcotics. Subjective Date of service: 10/07/20 Patient Reports: Positive: no new complaints Narrative: No acute events overnight. Pt says that he is passing flatus once in a while. He says that he wants ice chips and he is upset that they took his ice chips away. He denies pain or vomiting, but does have hiccoughs at times. Objective Vital Signs - 12hr 10/07/20 05:00 Temperature 99.1 F Pulse Rate 102 H Respiratory 20 Rate Blood Pressure 156/96 O2 Sat by Pulse 91 Oximetry - General physical appearance well developed, well nourished, no distress, no pain - Respiratory normal expansion, normal respiratory effort - Abdomen soft, distended, other (incision c/d/i, appropriately tender to palpation, NGT with copius bilious drainage. 1400 recorded last 24 hours) - Labs 10/07/20 04:19 10/07/20 04:19 Diabetes panel 10/07/20 Range/Units 04:19 Sodium 143 (137-145) mmol/L Potassium 3.9 (3.6-5.0) mmol/L Chloride 103.0 (98-107) mmol/L Carbon Dioxide 28 (22-30) mmol/L BUN 23 H (9-20) mg/dL Creatinine 0.9 (0.8-1.3) mg/dL Glucose 173 H (75-100) mg/dL Calcium 8.1 L (8.4-10.2) mg/dL Calcium panel 10/07/20 Range/Units 04:19 Calcium 8.1 L (8.4-10.2) mg/dL Pituitary panel 10/07/20 Range/Units 04:19 Sodium 143 (137-145) mmol/L Potassium 3.9 (3.6-5.0) mmol/L Chloride 103.0 (98-107) mmol/L Carbon Dioxide 28 (22-30) mmol/L BUN 23 H (9-20) mg/dL Creatinine 0.9 (0.8-1.3) mg/dL Glucose 173 H (75-100) mg/dL Calcium 8.1 L (8.4-10.2) mg/dL Adrenal panel 10/07/20 Range/Units 04:19 Sodium 143 (137-145) mmol/L Potassium 3.9 (3.6-5.0) mmol/L Chloride 103.0 (98-107) mmol/L Carbon Dioxide 28 (22-30) mmol/L BUN 23 H (9-20) mg/dL Creatinine 0.9 (0.8-1.3) mg/dL Glucose 173 H (75-100) mg/dL Calcium 8.1 L (8.4-10.2) mg/dL
--- NOTE | 2020-10-07 14:47 | Progress Note ---
Assessment and Plan -- Incarcerated umbilical hernia with bowel obstruction Patient admitted to the medical floor. General surgeon Dr. Avila has been consulted for evaluation. patient on IV analgesic medication as needed s/p Open reduction of incarcerated umbilical hernia, partial omentectomy, repair of hernia with mesh Patient remains on NG suction, keep n.p.o. -- ELLA (acute kidney injury) Possibly prerenal with vasomotor nephropathy. Patient placed on IV fluid normal saline. We will monitor BUN and creatinine. --Morbid obesity, weight reduction diet and exercise when ready for discharge when clinically stable -- DVT prophylaxis Patient placed on sequential compression device. -- Full code status Patient is a full code. 10/05: s/p Open reduction of incarcerated umbilical hernia, partial omentectomy, repair of hernia with mesh, POD 1. Continue to keep patient n.p.o., continue IV fluid. General surgery recommended to ambulate the patient and wait for bowel function to return. Continue to provide supportive care. 10/06: NGT output is still bilious and high -continue NG suction and keep n.p.o.. Continue IV fluid and monitor BMP 10/07: continue NGT to suction. he can have ice chips , Will await return of bowel function. Limit use of narcotics. cont iv fluid, follow BMP Subjective Date of service: 10/07/20 Interval history: Patient seen and examined Status post surgery POD 1 Patient remains n.p.o. with NG tube suction Discussed plan of care at the bedside with patient and with the RN Objective - Exam Narrative Exam: GENERAL: well-developed morbidly obese white male lying on bed appeared to be in no discomfort. HEENT: Normocephalic. Atraumatic. No conjunctival congestion or icterus. Patient has moist mucous membranes. NECK: Supple. Trachea midline. CHEST/LUNGS: breathing nonlabored. No wheezes crackles or rhonchi. HEART/CARDIOVASCULAR: Regular in rate and rhythm. S1 and S2 positive. ABDOMEN: Surgical dressing in place. Slightly tender SKIN: There is no rash. Warm and dry. NEURO: No focal motor deficit. Follows command. MUSCULOSKELETAL: No joint effusion or tenderness. EXTRIMITY: No edema, no cyanosis or clubbing. PSYCH: Cooperative. - Constitutional Vitals: Vital Signs - 12hr 10/07/20 10/07/20 05:00 12:34 Temperature 99.1 F Pulse Rate 102 H Respiratory 20 18 Rate Blood Pressure 156/96 O2 Sat by Pulse 91 Oximetry - Labs CBC & Chem 7: 10/07/20 04:19 10/09/20 03:17 Labs: Abnormal lab results 10/06/20 10/06/20 10/07/20 Range/Units 15:34 21:55 04:19 MCV 97 H (84-94) fl MCH 33 H (28-32) pg BUN (9-20) mg/dL Glucose (75-100) mg/dL POC Glucose 154 H 164 H (70-105) mg/dL Calcium (8.4-10.2) mg/dL 10/07/20 Range/Units 04:19 MCV (84-94) fl MCH (28-32) pg BUN 23 H (9-20) mg/dL Glucose 173 H (75-100) mg/dL POC Glucose (70-105) mg/dL Calcium 8.1 L (8.4-10.2) mg/dL HEART Score - HEART Score Troponin: Troponin T 0.011 ng/mL (0.00-0.029) 10/04/20 16:39
[2020-10-07] MEDS ORDERED: D5W/0.9% NACL 1,000 ML IV SCH (15:00)
[2020-10-08] MEDS: KETOROLAC 30 MG/1 ML INJ IV SCH ×4 (00:57→23:05)
[2020-10-08] MEDS: HEPARIN 5,000 UNIT/1 ML VIAL SUB-Q SCH ×3 (05:37→22:46)
[2020-10-08] MEDS: HYDROmorphone 1 MG/1 ML INJ IV PRN (05:38)
[2020-10-08 06:12] LABS: BUN/Creatinine Ratio 30; Blood Urea Nitrogen 27 mg/dL (9-20); Calcium 7.9 mg/dL (8.4-10.2); Hemolysis Index 38
[2020-10-08] MEDS: INSULIN REGULAR, HUMAN 100 UNITS/1 ML SUB-Q SCH ×4 (09:24→23:05)
--- NOTE | 2020-10-08 14:29 | XRay Report ---
CHEST / ABDOMEN 4 VIEW INDICATION / CLINICAL INFORMATION: sbo. COMPARISON: 10/07/2020 FINDINGS: SUPPORT DEVICES: Interval advancement of NG tube now with its tip in appropriate position. HEART / MEDIASTINUM: No significant abnormality. LUNGS / PLEURA: No significant pulmonary or pleural abnormality. No pneumothorax. TUBES / LINES: None. BOWEL GAS PATTERN: Persistent air-fluid levels are noted with persistent dilation of small bowel loop s, the largest lymph node now measuring 6.8 cm. FREE AIR / EXTRALUMINAL GAS: None seen. ADDITIONAL FINDINGS: No significant additional findings. IMPRESSION: 1. Persistent mechanical bowel obstruction. 2. Interval advancement of NG tube now with its tip in appropriate position. Signer Name: Norris Rankin MD Signed: 10/08/2020 2:24 PM Workstation Name: [id number]
--- NOTE | 2020-10-08 14:48 | Progress Note ---
Assessment and Plan 60 yo M s/p Open reduction of incarcerated umbilical hernia, partial omentectomy, repair of hernia with mesh, POD 3 1. incarcerated umbilical hernia 2. 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 elevated HbA1C 5. obesity Pt stable. High NGT outputs - 4250cc/24hr. Pt remains noncompliant about PO intake. Plan: 1. continue NPO, may have ice chips only 2. IVF 3. NGT clamp trial @1500 - orders placed, if passes trial will remove NGT. 4. OOB/ambulate 5. DVT ppx 6. GI ppx 7. prn pain control 8. Explained to patient AGAIN that drinking excessive amount of water, without knowledge of nurses, is contributing to elevated NGT output. I explained that he should only take in allowed amount of ice chips as per my orders so an accurate amount can be subtracted from NGT output. I once again reviewed plan with patient in detail. Will consider removing NGT if he passes clamp trial and then start on clear liquids. Explained that we will need to be slow with his diet as obs series today shows persistently dilated small bowel. He acknowledges understanding. D/W Dr. Allen Thank you, please call with questions. Subjective Date of service: 10/08/20 Narrative: Pt seen and examined. Has not been compliant with orders to only have 1/2 cup ice chips per shift. States he found water in his belongings and has been drinking at least three full large cups of water per day. He states he is passing flatus but no BM. Wants NGT removed. States he is having reflux with the NGT. No f/c. No cp, sob. Objective Vital Signs - 12hr 10/08/20 10/08/20 10/08/20 04:51 05:38 06:08 Temperature 98.5 F Pulse Rate 97 H Respiratory 18 17 17 Rate Blood Pressure 150/80 O2 Sat by Pulse 92 Oximetry 10/08/20 08:07 Temperature 98.2 F Pulse Rate 91 H Respiratory 18 Rate Blood Pressure 130/87 O2 Sat by Pulse 91 Oximetry - General physical appearance Narrative Exam: Gen; AAOx3. NAD ENT: NGT with brown gastric drainage CV: S1, S2+ Resp: even and unlabored Abd: soft, mildly distended, tympanitic to percussion, NT. Abd binder in place Ext; no c/c/e - Labs 10/07/20 04:19 10/08/20 05:15 Diabetes panel 10/08/20 Range/Units 05:15 Sodium 146 H (137-145) mmol/L Potassium 3.9 (3.6-5.0) mmol/L Chloride 104.7 (98-107) mmol/L Carbon Dioxide 28 (22-30) mmol/L BUN 27 H (9-20) mg/dL Creatinine 0.9 (0.8-1.3) mg/dL Glucose 168 H (75-100) mg/dL Calcium 7.9 L (8.4-10.2) mg/dL Calcium panel 10/08/20 Range/Units 05:15 Calcium 7.9 L (8.4-10.2) mg/dL Pituitary panel 10/08/20 Range/Units 05:15 Sodium 146 H (137-145) mmol/L Potassium 3.9 (3.6-5.0) mmol/L Chloride 104.7 (98-107) mmol/L Carbon Dioxide 28 (22-30) mmol/L BUN 27 H (9-20) mg/dL Creatinine 0.9 (0.8-1.3) mg/dL Glucose 168 H (75-100) mg/dL Calcium 7.9 L (8.4-10.2) mg/dL Adrenal panel 10/08/20 Range/Units 05:15 Sodium 146 H (137-145) mmol/L Potassium 3.9 (3.6-5.0) mmol/L Chloride 104.7 (98-107) mmol/L Carbon Dioxide 28 (22-30) mmol/L BUN 27 H (9-20) mg/dL Creatinine 0.9 (0.8-1.3) mg/dL Glucose 168 H (75-100) mg/dL Calcium 7.9 L (8.4-10.2) mg/dL
[2020-10-08] MEDS: SODIUM CHLORIDE 0.9% 1000 ML 1,000 ML IV SCH (15:26)
--- NOTE | 2020-10-08 15:27 | Progress Note ---
Assessment and Plan -- Incarcerated umbilical hernia with bowel obstruction Patient admitted to the medical floor. General surgeon Dr. Avila has been consulted for evaluation. patient on IV analgesic medication as needed s/p Open reduction of incarcerated umbilical hernia, partial omentectomy, repair of hernia with mesh Patient remains on NG suction, keep n.p.o. -- ELLA (acute kidney injury) Possibly prerenal with vasomotor nephropathy. Patient placed on IV fluid normal saline. We will monitor BUN and creatinine. --Morbid obesity, weight reduction diet and exercise when ready for discharge when clinically stable -- DVT prophylaxis Patient placed on sequential compression device. -- Full code status Patient is a full code. 10/05: s/p Open reduction of incarcerated umbilical hernia, partial omentectomy, repair of hernia with mesh, POD 1. Continue to keep patient n.p.o., continue IV fluid. General surgery recommended to ambulate the patient and wait for bowel function to return. Continue to provide supportive care. 10/06: NGT output is still bilious and high -continue NG suction and keep n.p.o.. Continue IV fluid and monitor BMP 10/07: continue NGT to suction. he can have ice chips , Will await return of bowel function. Limit use of narcotics. cont iv fluid, follow BMP 10/08: Patient remains on NG suction as he is still having liters of NGT output. Discussed with Dr. Che and explained the patient to be adhered with the n. p.o. and ice chips order. Patient verbalized understanding. Continue to monitor for now Subjective Date of service: 10/08/20 Interval history: Patient seen and examined Patient remains n.p.o. with NG tube suction Discussed plan of care at the bedside with patient and with the RN Objective - Exam Narrative Exam: GENERAL: well-developed morbidly obese white male lying on bed appeared to be in no discomfort. HEENT: Normocephalic. Atraumatic. No conjunctival congestion or icterus. Patient has moist mucous membranes. NECK: Supple. Trachea midline. CHEST/LUNGS: breathing nonlabored. No wheezes crackles or rhonchi. HEART/CARDIOVASCULAR: Regular in rate and rhythm. S1 and S2 positive. ABDOMEN: Surgical dressing in place. Slightly tender SKIN: There is no rash. Warm and dry. NEURO: No focal motor deficit. Follows command. MUSCULOSKELETAL: No joint effusion or tenderness. EXTRIMITY: No edema, no cyanosis or clubbing. PSYCH: Cooperative. - Constitutional Vitals: Vital Signs - 12hr 10/08/20 10/08/20 10/08/20 04:51 05:38 06:08 Temperature 98.5 F Pulse Rate 97 H Respiratory 18 17 17 Rate Blood Pressure 150/80 O2 Sat by Pulse 92 Oximetry 10/08/20 08:07 Temperature 98.2 F Pulse Rate 91 H Respiratory 18 Rate Blood Pressure 130/87 O2 Sat by Pulse 91 Oximetry - Labs CBC & Chem 7: 10/07/20 04:19 10/09/20 03:17 Labs: Abnormal lab results 10/08/20 Range/Units 05:15 Sodium 146 H (137-145) mmol/L BUN 27 H (9-20) mg/dL Glucose 168 H (75-100) mg/dL Calcium 7.9 L (8.4-10.2) mg/dL HEART Score - HEART Score Troponin: Troponin T 0.011 ng/mL (0.00-0.029) 10/04/20 16:39
[2020-10-08] MEDS: FAMOTIDINE 20 MG/2 ML INJ IV SCH (22:45)
[2020-10-08] MEDS: SODIUM CHLORIDE 0.45% 1000 ML 1,000 ML IV SCH (22:54)
[2020-10-09] MEDS: KETOROLAC 30 MG/1 ML INJ IV SCH ×3 (01:57→12:07)
[2020-10-09 04:06] LABS: BUN/Creatinine Ratio 28; Blood Urea Nitrogen 25 mg/dL (9-20); Calcium 7.5 mg/dL (8.4-10.2); Hemolysis Index 7
[2020-10-09] MEDS: HEPARIN 5,000 UNIT/1 ML VIAL SUB-Q SCH ×2 (06:00→15:15)
[2020-10-09] MEDS: FAMOTIDINE 20 MG/2 ML INJ IV SCH (09:27)
[2020-10-09] MEDS: INSULIN REGULAR, HUMAN 100 UNITS/1 ML SUB-Q SCH ×3 (09:28→17:19)
--- NOTE | 2020-10-09 11:16 | Progress Note ---
Assessment and Plan 60 yo M s/p Open reduction of incarcerated umbilical hernia, partial omentectomy, repair of hernia with mesh, POD 4 1. incarcerated umbilical hernia 2. SBO 2/2/ #1 3. 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 elevated HbA1C 5. obesity Pt stable. Having bowel function. Plan: 1. CLD for lunch, adv to [facility] for dinner. 2. gentle IVF 3. prn pain control - change to PO 4. OOB./ambulate 5. abdominal binder 6. IS/pulm toilet 7. If pt tolerates liquids, he may be discharged home. I explained dc instructions including weight lifting restriction for 6 weeks in great detail and asked patient to follow up in surgery clinic in 2 weeks. I also discussed elevated blood sugars and HbA1C with him and advised him to see PCP at [facility] upon discharge for management of DM. 8. May return to work on Thursday. Thank you, please call with questions. Subjective Date of service: 10/09/20 Narrative: Pt seen and examined. No acute complaints. During clamp trial yesterday, NGT was hooked up before trial was over by someone (not nursing) and 500cc in canister. Discussed with RN at the time and advised to leave NGT in place as output was high. Per RN notes, at next check in with patient, the NGT had accidentally fallen out. Pt has not had any n/v overnight. Tolerating ice chips. +BM - loose, + Flatus. No f/c. Ambulating on his own. Pain well controlled. Objective Vital Signs - 12hr 10/08/20 10/09/20 10/09/20 23:36 04:36 07:47 Temperature 99.1 F 98.4 F 98.0 F Pulse Rate 88 85 79 Respiratory 18 18 18 Rate Respiratory Rate [Abdomen] Blood Pressure 113/77 130/85 128/86 O2 Sat by Pulse 88 97 93 Oximetry 10/09/20 10:00 Temperature Pulse Rate Respiratory Rate Respiratory 20 Rate [Abdomen] Blood Pressure O2 Sat by Pulse Oximetry - General physical appearance Narrative Exam: Gen; AAOx3. NAD CV: S1, S2+ Resp: even and unlabored Abd: soft, mildly distended, obese. Incision c/d/i. NT. Abd binder in place Ext; no c/c/e - Labs 10/07/20 04:19 10/09/20 03:17 Diabetes panel 10/09/20 Range/Units 03:17 Sodium 138 D (137-145) mmol/L Potassium 4.2 (3.6-5.0) mmol/L Chloride 100.9 (98-107) mmol/L Carbon Dioxide 27 (22-30) mmol/L BUN 25 H (9-20) mg/dL Creatinine 0.9 (0.8-1.3) mg/dL Glucose 138 H (75-100) mg/dL Calcium 7.5 L (8.4-10.2) mg/dL Calcium panel 10/09/20 Range/Units 03:17 Calcium 7.5 L (8.4-10.2) mg/dL Pituitary panel 10/09/20 Range/Units 03:17 Sodium 138 D (137-145) mmol/L Potassium 4.2 (3.6-5.0) mmol/L Chloride 100.9 (98-107) mmol/L Carbon Dioxide 27 (22-30) mmol/L BUN 25 H (9-20) mg/dL Creatinine 0.9 (0.8-1.3) mg/dL Glucose 138 H (75-100) mg/dL Calcium 7.5 L (8.4-10.2) mg/dL Adrenal panel 10/09/20 Range/Units 03:17 Sodium 138 D (137-145) mmol/L Potassium 4.2 (3.6-5.0) mmol/L Chloride 100.9 (98-107) mmol/L Carbon Dioxide 27 (22-30) mmol/L BUN 25 H (9-20) mg/dL Creatinine 0.9 (0.8-1.3) mg/dL Glucose 138 H (75-100) mg/dL Calcium 7.5 L (8.4-10.2) mg/dL
[2020-10-09] MEDS ORDERED: oxyCODONE /ACETAMINOPHEN 5-325MG TAB PO PRN (11:17)
[2020-10-09] MEDS: SODIUM CHLORIDE 0.45% 1000 ML 1,000 ML IV SCH (12:07)
--- NOTE | 2020-10-09 14:50 | Discharge Summary ---
<TEJAL KIMBALL - Last Filed: 10/09/20 14:52> Providers - Providers Date of Admission: 10/04/20 22:34 Date of discharge: 10/09/20 Attending physician: TEJAL KIMBALL 10/04/20 22:13 Consult to Physician [CONS] Routine Comment: Dr. Thakur spoke with Dr. Lynn @ [id number] Consulting Provider: GEORGIA LYNN Physician Instructions: Reason For Exam: sbo secondary to incarcerated hernia Primary care physician: FLY MAKER Hospitalization Condition: Fair Pertinent studies: CT abdomen/pelvis CXR Hospital course: 60-year-old -N[place]alese male presenting to the emergency room today complaining of abdominal pain which has been ongoing for the past 3 days. Patient has had an umbilical hernia over several years but has not had any major problems with it. However over the past 3 to 4 days he has been having pain in his umbilical region. He has been having nausea and vomiting and has been constipated over the past 4 days. He denies any coffee-ground emesis, no diarrhea, no chest pain or shortness of breath, no fever or chills, no headache or dizziness. Denies any dysuria or hematuria. Work-up in the emergency room today including CT scan of the abdomen and pelvis reveals incarcerated umbilical hernia. Labs were significant for acute kidney injury. Dr. Lynn this general surgeon was consulted by the ER physician. Patient will be promptly evaluated. Daily course: 10/05: s/p Open reduction of incarcerated umbilical hernia, partial omentectomy, repair of hernia with mesh, POD 1. Continue to keep patient n.p.o., continue IV fluid. General surgery recommended to ambulate the patient and wait for bowel function to return. Continue to provide supportive care. 10/06: NGT output is still bilious and high -continue NG suction and keep n.p.o.. Continue IV fluid and monitor BMP 10/07: continue NGT to suction. he can have ice chips , Will await return of bowel function. Limit use of narcotics. cont iv fluid, follow BMP 10/08: Patient remains on NG suction as he is still having liters of NGT output. Discussed with Dr. Lynn and explained the patient to be adhered with the n.p.o. and ice chips order. Patient verbalized understanding. Continue to monitor for now Discharge diagnosis: -- Incarcerated umbilical hernia with bowel obstruction Patient admitted to the medical floor. General surgeon Dr. Avila has been consulted for evaluation. patient on IV analgesic medication as needed s/p Open reduction of incarcerated umbilical hernia, partial omentectomy, repair of hernia with mesh s/p NG suction, started on clear liquid diet patient recommended outpt f/u -- ELLA (acute kidney injury) Possibly prerenal with vasomotor nephropathy. Patient placed on IV fluid normal saline. resolved --Morbid obesity, weight reduction diet and exercise when appropriate as outpatient -- DVT prophylaxis Patient placed on sequential compression device. -- Full code status Patient is a full code. Disposition: DC- TO HOME OR SELFCARE Time spent for discharge: 34 minutes Core Measure Documentation - Palliative Care Palliative Care/ Comfort Measures: Not Applicable - Core Measures Any of the following diagnoses?: none Exam - Physical Exam Narrative exam: GENERAL: well-developed morbidly obese white male lying on bed appeared to be in no discomfort. HEENT: Normocephalic. Atraumatic. No conjunctival congestion or icterus. Patient has moist mucous membranes. NECK: Supple. Trachea midline. CHEST/LUNGS: breathing nonlabored. No wheezes crackles or rhonchi. HEART/CARDIOVASCULAR: Regular in rate and rhythm. S1 and S2 positive. ABDOMEN: Surgical dressing in place. Slightly tender SKIN: There is no rash. Warm and dry. NEURO: No focal motor deficit. Follows command. MUSCULOSKELETAL: No joint effusion or tenderness. EXTRIMITY: No edema, no cyanosis or clubbing. PSYCH: Cooperative. - Constitutional Vitals: Temp Pulse Resp BP Pulse Ox 98.0 F 79 18 128/86 93 10/09/20 07:47 10/09/20 07:47 10/09/20 12:07 10/09/20 07:47 10/09/20 07:47 Plan Activity: advance as tolerated Weight Bearing Status: Non-Weight Bearing Diet: other (clear liquid diet for a week then advance as tolerated) Wound: per your surgeon's advice Follow up with: [facility] [Provider Group] - 7 Days GEORGIA LYNN DO [Staff Physician] - 14 Days Prescriptions: oxyCODONE /ACETAMINOPHEN [Percocet 5/325 mg] 1 tab PO Q4H PRN #14 tablet PRN Reason: Pain, Moderate (4-6) <GEORGIA LYNN - Last Filed: 10/09/20 14:56> Providers - Providers Date of Admission: 10/04/20 22:34 Attending physician: TEJAL KIMBALL 10/04/20 22:13 Consult to Physician [CONS] Routine Comment: Dr. Thakur spoke with Dr. Lynn @ [id number] Consulting Provider: GEORGIA LYNN Physician Instructions: Reason For Exam: sbo secondary to incarcerated hernia Primary care physician: FLY MAKER Exam - Constitutional Vitals: Temp Pulse Resp BP Pulse Ox 98.0 F 79 18 128/86 93 10/09/20 07:47 10/09/20 07:47 10/09/20 12:07 10/09/20 07:47 10/09/20 07:47 Plan Diet: other Additional Instructions: Patient discharge instructions. You have undergone surgery to repair an umbilical hernia that was causing a bowel blockage. You will feel sore for the next few days. Bruising around your incision could be normal. Diet: ?Liquid diet juice, jello, fruit cup, oatmeal, grits, etc. ?Soft diet may advance to easy to digest, soft foods after 5-7 days. Make sure to drink plenty of water and stay hydrated. Activity: You are encouraged to walk and may go up and down the steps. No heavy lifting of more than 15 lbs for the next 6 weeks. Wear abdominal binder at all times except for when showering and sleeping. Do not drive if you are taking prescription, narcotic pain medications. Showering: You may shower. Pat your incision dry and do not scrub or rub. Do not get into a hot tub, pool, or bathtub where your incisions will be under water. Wound care instructions: Keep incisions clean and dry. There is skin glue on your incisions which will fall off on its own. Pain medications: You are encouraged to use over the counter pain medications like Tylenol or Ibuprofen as directed on the bottle for pain control. If your pain is not controlled with these medications, you have been given a prescription for Percocet. Please use as directed and if you do not finish the prescription pain medications, please return to your pharmacy. Reasons to call Surgeons office: If you have fevers >100.4. If you are having increasing abdominal pain or vomiting. If you have pain that is not controlled with prescription pain medications. If you have drainage if pus or redness around the incisions. When to come back to see your Surgeon: Please call the office ([phone]) to make an appointment to see the surgeon in 2 weeks. Call if you have any questions. [facility]. [facility]
[2020-10-09 16:49] VITALS: BP 122/80
== END 2020-10-09 19:12 | disposition home or self-care (01) | DRG 354 ==
LOC: ED 15:01 → 3A 22:34 → 3B-SURG 23:05
PROVIDERS: ADMIT Internal Medicine Geriatric Medicine; ATTEND Internal Medicine
PROC: 0DBU0ZZ Excision of Omentum, Open Approach (ICD-10-PCS; principal; 2020-10-05)
PROC: 0WUF0JZ Supplement Abdominal Wall with Synthetic Substitute, Open Approach (ICD-10-PCS; 2020-10-05)
PROC: 3E0M05Z Introduction of Adhesion Barrier into Peritoneal Cavity, Open Approach (ICD-10-PCS; 2020-10-05)
DX: K42.0 Umbilical hernia with obstruction, without gangrene (principal); K56.609 Unspecified intestinal obstruction, unspecified as to partial versus complete obstruction; N17.9 Acute kidney failure, unspecified; I10 Essential (primary) hypertension; E66.01 Morbid (severe) obesity due to excess calories; Z91.013 Allergy to seafood; Z90.49 Acquired absence of other specified parts of digestive tract; Z83.3 Family history of diabetes mellitus; Z82.49 Family history of ischemic heart disease and other diseases of the circulatory system; Z68.37 Body mass index [BMI] 37.0-37.9, adult
CPT/HCPCS: 36415; 74018; 74022; 74177; 80048; 80076; 81001; 82140; 82550; 82962; 83036; 83690; 84484; 85025; 85027; 85610; 87040; 88302; 88305; 93005; 96374; 96375; G0378; C1781; J0690; J1100; J1170; J1644; J1815; J1885; J2270; J2405; J2704; J2710; J3010; J3230; J7030; J7120; Q9967